=== PATIENT | male | born 1975 | race Two or more races ===

== ENCOUNTER 2019-01-14 08:21 | Emergency (ER) | payer OTHER ==
[~2019-01-14] VITALS: Ht 175.3 cm; Wt 104.5 kg
[2019-01-14] MEDS ORDERED: FURO80 PO (08:32)
[2019-01-14] MEDS ORDERED: IBUPROFEN 600 MG TABLET PO ONE (09:15)
[2019-01-14 13:00] VITALS: BP 118/79
== END 2019-01-14 13:05 | disposition home or self-care (01) ==
LOC: EMS 08:23
DX: F10.129 Alcohol abuse with intoxication, unspecified (principal); M54.9 Dorsalgia, unspecified; G89.29 Other chronic pain; F17.210 Nicotine dependence, cigarettes, uncomplicated; Z79.899 Other long term (current) drug therapy

== ENCOUNTER 2019-01-17 14:51 | Emergency (ER) | payer OTHER ==
[~2019-01-17] VITALS: Ht 175.3 cm; Wt 105.0 kg
[~2019-01-17 14:51] MED LIST: FURO80 PO
[2019-01-17] MEDS ORDERED: GABA-531 PO (15:22)
[2019-01-17] MEDS ORDERED: FURO20 PO (15:22)
[2019-01-17] MEDS ORDERED: CEPH500 PO (15:22)
[2019-01-17] MEDS ORDERED: OMEP20 PO (15:22)
[2019-01-17 15:35] LABS: GLUCOSE,POINT OF CARE 118 MG/DL (70-110)
[2019-01-17 16:06] LABS: BASOPHILS % (AUTO) 0.5 % (0.0-2.0); EOSINOPHILS % (AUTO) 5.7 % (1.0-6.0); HEMATOCRIT 31.4 % (41-53); HEMOGLOBIN 10.1 g/dL (13.5-17.5); LYMPHOCYTES # (AUTO) 1.8 K/uL (1.0-4.8); MEAN CORPUSCULAR HEMOGLOBIN 25.8 pg (26.0-34.0); MEAN CORPUSCULAR HGB CONC 32.3 G/dL (31.0-37.0); MEAN CORPUSCULAR VOLUME 80 fL (80-100); MONOCYTES # (AUTO) 0.3 K/uL (0.1-1.0); MONOCYTES % (AUTO) 6.2 % (2.0-9.0); NEUTROPHILS # (AUTO) 3.1 K/uL (1.8-7.7); NEUTROPHILS % (AUTO) 55.6 % (40.0-70.0); RED BLOOD CELL COUNT(AUTO) 3.92 MIL/uL (4.50-5.90); RED CELL DISTRIBUTION WIDTH 21.7 % (11.5-14.5)
[2019-01-17 16:21] LABS: ALANINE AMINOTRANSFERASE 79 U/L (12-78); ALBUMIN 3.2 g/dL (3.4-5.0); ALKALINE PHOSPHATASE 123 U/L (46-116); ANION GAP 10 mmol/L (8-16); ASPARTATE AMINOTRANSFERASE 147 U/L (15-37); BILIRUBIN,TOTAL 1.1 mg/dL (0.1-1.0); CARBON DIOXIDE 25 mmol/L (22-29); CHLORIDE 108 mmol/L (98-107); GLOMERULAR FILTR. RATE CALC > 60 mL/min (>60); GLUCOSE,RANDOM 112 mg/dL (70-110); POTASSIUM 3.9 mmol/L (3.5-5.1); SODIUM SERUM 143 mmol/L (136-145); TOTAL PROTEIN, SERUM 6.4 g/dL (6.4-8.2); UREA NITROGEN, BLOOD 5 mg/dL (7-18)
[2019-01-17 16:30] LABS: PLATELET COUNT (AUTO) 46 K/uL (150-450)
[2019-01-17 16:33] LABS: CALCIUM, TOTAL 8.7 mg/dL (8.8-10.5)
[2019-01-17 16:34] LABS: ACETAMINOPHEN < 2 mcg/mL (10-30)
[2019-01-17 17:07] LABS: SALICYLATE 0.9 mg/dL (2.8-20.0)
[2019-01-17 17:40] LABS: AMPHET/METH SCREEN,URINE NEGATIVE (NEGATIVE); BARBITURATE SCREEN, URINE NEGATIVE (NEGATIVE); BENZODIAZEPINES SCREEN,URINE NEGATIVE (NEGATIVE); CANNABINOID SCREEN,URINE NEGATIVE (NEGATIVE); COCAINE SCREEN,URINE NEGATIVE (NEGATIVE); METHADONE SCREEN, URINE NEGATIVE (NEGATIVE); OPIATE SCREEN,URINE NEGATIVE (NEGATIVE)
[2019-01-17 17:41] LABS: PHENCYCLIDINE SCREEN,URINE NEGATIVE (NEGATIVE)
[2019-01-17 17:47] LABS: APPEARANCE,URINE CLEAR (CLEAR); BILIRUBIN,URINE NEGATIVE (NEGATIVE); GLUCOSE, URINE (UA) NEGATIVE (NEGATIVE); KETONES,URINE NEGATIVE (NEGATIVE); LEUKOCYTE ESTERASE ,URINE NEGATIVE (NEGATIVE); NITRATE,URINE NEGATIVE (NEGATIVE); OCCULT BLOOD,URINE NEGATIVE (NEGATIVE); PROTEIN,URINE NEGATIVE (NEGATIVE)
[2019-01-17 18:13] LABS: BACTERIA,URINE None Seen /HPF (None Seen); RBC,URINE None Seen /HPF (0-2); WBC,URINE None Seen /HPF (0-5)
[2019-01-17 18:14] LABS: SQUAMOUS EPITHELIAL CELL,UR Rare /LPF (None Seen)
[2019-01-17 22:57] VITALS: BP 124/76
== END 2019-01-17 23:14 | disposition home or self-care (01) ==
LOC: EMS 14:54
DX: F10.229 Alcohol dependence with intoxication, unspecified (principal); E11.9 Type 2 diabetes mellitus without complications; I10 Essential (primary) hypertension; G89.29 Other chronic pain; K74.60 Unspecified cirrhosis of liver; F17.210 Nicotine dependence, cigarettes, uncomplicated; F32.9 Major depressive disorder, single episode, unspecified; Z79.899 Other long term (current) drug therapy; Y90.8 Blood alcohol level of 240 mg/100 ml or more
CPT/HCPCS: 36415; 80053; 80307; 81001; 82962; 85025; 99285; G0480; G0481

== ENCOUNTER 2019-02-04 23:41 | Emergency (ER) | payer OTHER ==
[~2019-02-04] VITALS: Ht 175.3 cm; Wt 97.5 kg
[~2019-02-04 23:41] MED LIST changes: +CEPH500 PO; +FURO20 PO; -FURO80 PO; +GABA-531 PO; +OMEP20 PO
[2019-02-05] MEDS ORDERED: IOVERSOL 350 MG/ML 150 ML VIAL ONE (01:37)
[2019-02-05] MEDS ORDERED: SODIUM CHLORIDE 0.9% 100 ML ONE (01:37)
[2019-02-05 01:40] LABS: BASOPHILS % (AUTO) 0.8 % (0.0-2.0); EOSINOPHILS % (AUTO) 9.5 % (1.0-6.0); HEMATOCRIT 39.9 % (41-53); HEMOGLOBIN 12.9 g/dL (13.5-17.5); LYMPHOCYTES # (AUTO) 2.6 K/uL (1.0-4.8); MEAN CORPUSCULAR HGB CONC 32.2 G/dL (31.0-37.0); MEAN CORPUSCULAR VOLUME 84 fL (80-100); MONOCYTES # (AUTO) 0.6 K/uL (0.1-1.0); MONOCYTES % (AUTO) 8.3 % (2.0-9.0); NEUTROPHILS # (AUTO) 3.5 K/uL (1.8-7.7); NEUTROPHILS % (AUTO) 46.4 % (40.0-70.0); RED BLOOD CELL COUNT(AUTO) 4.76 MIL/uL (4.50-5.90)
[2019-02-05 01:56] LABS: ALANINE AMINOTRANSFERASE 73 U/L (12-78); ALBUMIN 3.6 g/dL (3.4-5.0); ALKALINE PHOSPHATASE 131 U/L (46-116); ANION GAP 8 mmol/L (8-16); ASPARTATE AMINOTRANSFERASE 79 U/L (15-37); BILIRUBIN,TOTAL 1.1 mg/dL (0.1-1.0); CALCIUM, TOTAL 8.9 mg/dL (8.8-10.5); CARBON DIOXIDE 28 mmol/L (22-29); CHLORIDE 103 mmol/L (98-107); CREATININE 0.83 mg/dL (0.60-1.30); GLOMERULAR FILTR. RATE CALC > 60 mL/min (>60); GLUCOSE,RANDOM 109 mg/dL (70-110); POTASSIUM 3.8 mmol/L (3.5-5.1); SODIUM SERUM 139 mmol/L (136-145); TOTAL PROTEIN, SERUM 7.9 g/dL (6.4-8.2)
[2019-02-05 02:02] LABS: UREA NITROGEN, BLOOD 7 mg/dL (7-18)
[2019-02-05 02:07] LABS: PLATELET COUNT (AUTO) 91 K/uL (150-450)
[2019-02-05 05:14] LABS: CREATINE KINASE, TOTAL ONLY 520 U/L (39-308)
[2019-02-05 11:26] VITALS: BP 125/70
== END 2019-02-05 12:29 | disposition home or self-care (01) ==
LOC: EMS 23:43
DX: S00.03XA Contusion of scalp, initial encounter (principal); K70.30 Alcoholic cirrhosis of liver without ascites; R41.82 Altered mental status, unspecified; F10.129 Alcohol abuse with intoxication, unspecified; F32.9 Major depressive disorder, single episode, unspecified; I10 Essential (primary) hypertension; E11.9 Type 2 diabetes mellitus without complications; G89.29 Other chronic pain; F17.210 Nicotine dependence, cigarettes, uncomplicated; Z79.899 Other long term (current) drug therapy; W19.XXXA Unspecified fall, initial encounter; Y93.89 Activity, other specified; Y92.89 Other specified places as the place of occurrence of the external cause; Y99.8 Other external cause status; Y90.8 Blood alcohol level of 240 mg/100 ml or more
CPT/HCPCS: 36415; 70450; 71260; 72125; 74177; 80053; 82550; 84484; 85025; 93005; 99284; G0480; J7050; Q9967; 72193; 74160

== ENCOUNTER 2019-12-16 23:25 | Emergency (ER) | payer OTHER ==
[~2019-12-16] VITALS: Ht 175.3 cm; Wt 115.7 kg
[~2019-12-16 23:25] MED LIST changes: +GABA-1181 PO; -GABA-531 PO
[2019-12-16 23:57] LABS: BASOPHILS % (AUTO) 1.3 % (0.0-2.0); EOSINOPHILS % (AUTO) 2.2 % (1.0-6.0); HEMATOCRIT 34.2 % (41-53); HEMOGLOBIN 11.2 g/dL (13.5-17.5); LYMPHOCYTES # (AUTO) 2.1 K/uL (1.0-4.8); LYMPHOCYTES % (AUTO) 44.5 % (22.0-44.0); MEAN CORPUSCULAR HEMOGLOBIN 27.1 pg (26.0-34.0); MEAN CORPUSCULAR HGB CONC 32.8 G/dL (31.0-37.0); MEAN CORPUSCULAR VOLUME 83 fL (80-100); MONOCYTES # (AUTO) 0.5 K/uL (0.1-1.0); MONOCYTES % (AUTO) 9.6 % (2.0-9.0); NEUTROPHILS % (AUTO) 42.4 % (40.0-70.0); RED BLOOD CELL COUNT(AUTO) 4.14 MIL/uL (4.50-5.90); RED CELL DISTRIBUTION WIDTH 21.2 % (11.5-14.5)
[2019-12-17] MEDS ORDERED: DOXY-354 PO (00:02)
[2019-12-17] MEDS ORDERED: TRAZ-257 PO (00:02)
[2019-12-17] MEDS ORDERED: SPIR25 PO (00:02)
[2019-12-17] MEDS ORDERED: LEVE500T53 PO (00:02)
[2019-12-17] MEDS ORDERED: BUSP10TA23 PO (00:02)
[2019-12-17] MEDS ORDERED: FOLI-130 PO (00:02)
[2019-12-17] MEDS ORDERED: IBUP-2070 PO (00:02)
[2019-12-17] MEDS ORDERED: MIRT-89 PO (00:02)
[2019-12-17] MEDS ORDERED: THIA100T80 PO (00:02)
[2019-12-17 00:42] LABS: AMPHET/METH SCREEN,URINE NEGATIVE (NEGATIVE); BARBITURATE SCREEN, URINE NEGATIVE (NEGATIVE); BENZODIAZEPINES SCREEN,URINE NEGATIVE (NEGATIVE); CANNABINOID SCREEN,URINE NEGATIVE (NEGATIVE); COCAINE SCREEN,URINE NEGATIVE (NEGATIVE); METHADONE SCREEN, URINE NEGATIVE (NEGATIVE); OPIATE SCREEN,URINE NEGATIVE (NEGATIVE)
[2019-12-17 00:43] LABS: PHENCYCLIDINE SCREEN,URINE NEGATIVE (NEGATIVE)
[2019-12-17 00:45] LABS: PLATELET COUNT (AUTO) 55 K/uL (150-450)
[2019-12-17 00:54] LABS: ANION GAP 10 mmol/L (8-16); CALCIUM, TOTAL 8.6 mg/dL (8.8-10.5); CARBON DIOXIDE 26 mmol/L (22-29); CHLORIDE 112 mmol/L (98-107); CREATININE 0.69 mg/dL (0.60-1.30); GLOMERULAR FILTR. RATE CALC > 60 mL/min (>60); GLUCOSE,RANDOM 159 mg/dL (70-110); POTASSIUM 3.4 mmol/L (3.5-5.1); SODIUM SERUM 148 mmol/L (136-145); UREA NITROGEN, BLOOD 9 mg/dL (7-18)
[2019-12-17 01:00] LABS: ALANINE AMINOTRANSFERASE 39 U/L (12-78); ALBUMIN 3.1 g/dL (3.4-5.0); ALKALINE PHOSPHATASE 127 U/L (46-116); ASPARTATE AMINOTRANSFERASE 61 U/L (15-37); BILIRUBIN,TOTAL 0.7 mg/dL (0.1-1.0); TOTAL PROTEIN, SERUM 7.5 g/dL (6.4-8.2)
[2019-12-17 06:30] VITALS: BP 118/83
== END 2019-12-17 07:16 | disposition home or self-care (01) ==
LOC: EMS 23:25
DX: F10.129 Alcohol abuse with intoxication, unspecified (principal); F32.9 Major depressive disorder, single episode, unspecified; E11.9 Type 2 diabetes mellitus without complications; I10 Essential (primary) hypertension; G89.29 Other chronic pain; F17.210 Nicotine dependence, cigarettes, uncomplicated; Z79.899 Other long term (current) drug therapy; Y90.8 Blood alcohol level of 240 mg/100 ml or more
CPT/HCPCS: 36415; 80053; 80307; 85025; 99285; G0480

== ENCOUNTER 2019-12-20 10:03 | Inpatient (IN) | payer MEDICAID ==
[~2019-12-20] VITALS: Ht 175.3 cm; Wt 105.6 kg
[~2019-12-20 10:03] MED LIST changes: +BUSP10TA23 PO; -CEPH500 PO; +DOXY-354 PO; +FOLI-130 PO; +IBUP-2070 PO; +LEVE500T53 PO; +MIRT-89 PO; -OMEP20 PO; +SPIR25 PO; +THIA100T80 PO; +TRAZ-257 PO
[2019-12-20] MEDS ORDERED: LORazepam 2 MG TABLET PO PRN (19:30)
[2019-12-20] MEDS ORDERED: DULO60CA64 PO (19:35)
[2019-12-20] MEDS ORDERED: PANT40TA25 PO (19:35)
[2019-12-20 21:27] VITALS: BP 110/54
[2019-12-20] MEDS: TraMADol HCL 50 MG TABLET PO PRN (22:52)
[2019-12-21] VITALS (7 sets, daily range): BP systolic 105–138; BP diastolic 56–75
[2019-12-21] MEDS: ZOLPIDEM TARTRATE 10 MG TABLET PO PRN (01:42)
[2019-12-21] MEDS ORDERED: ONDANSETRON HCL 4 MG TABLET PO PRN (08:15)
[2019-12-21] MEDS ORDERED: GuaiFENesin/D-METHORPHAN [SUGAR-FREE] 200-20MG/10 ML SYRUP UDCUP PO PRN (08:15)
[2019-12-21] MEDS ORDERED: LOPERAMIDE HCL 2 MG CAPSULE PO PRN (08:15)
[2019-12-21] MEDS ORDERED: MAGNESIUM HYDROXIDE SUSPENSION 30 ML UDCUP PO PRN (08:15)
[2019-12-21] MEDS ORDERED: PETROLATUM,WHITE 28 GM JELLY TP PRN (08:15)
[2019-12-21] MEDS ORDERED: CloNIDine HCL 0.1 MG TABLET PO PRN (08:15)
[2019-12-21] MEDS ORDERED: DOCUSATE SODIUM 100 MG CAPSULE PO PRN (08:15)
[2019-12-21] MEDS ORDERED: IBUPROFEN 400 MG TABLET PO PRN (08:15)
[2019-12-21] MEDS ORDERED: ACETAMINOPHEN 325 MG TABLET PO PRN (08:15)
[2019-12-21] MEDS ORDERED: ALBUTEROL SULFATE HFA 90 MCG/PUFF 8 GM INHALER IH PRN (08:15)
[2019-12-21] MEDS ORDERED: MAG HYDROX/AL HYDROX/SIMETH ES 30 ML SUSPENSION UDCUP PO PRN (08:15)
[2019-12-21] MEDS ORDERED: NICOTINE 14 MG/24 HOUR PATCH TD PRN (08:15)
[2019-12-21] MEDS: FUROSEMIDE 20 MG TABLET PO SCH (09:23)
[2019-12-21] MEDS: SPIRONOLACTONE 25 MG TABLET PO SCH ×2 (09:23→16:39)
[2019-12-21] MEDS: LevETIRAcetam 500 MG TABLET PO SCH ×2 (09:23→16:39)
[2019-12-21] MEDS ORDERED: LORazepam 2 MG TABLET PO PRN (10:30)
[2019-12-21] MEDS ORDERED: CYANOCOBALAMIN 1,000 MCG/ML VIAL IM ONE (10:30)
[2019-12-21] MEDS: DULoxetine HCL 60 MG CAPSULE PO SCH (11:06)
[2019-12-21] MEDS: FOLIC ACID 1 MG TABLET PO SCH (11:06)
[2019-12-21] MEDS: MULTIVITAMINS WITH MINERALS, THERAPEUTIC TABLET PO SCH (11:07)
[2019-12-21] MEDS: THIAMINE 100 MG TABLET PO SCH ×2 (11:07→16:39)
[2019-12-21] MEDS: BusPIRone HCL 10 MG TABLET PO SCH ×2 (11:13→16:38)
[2019-12-21] MEDS: HALOPERIDOL 5 MG TABLET PO PRN (11:18)
[2019-12-21] MEDS: MIRTAZAPINE 15 MG TABLET PO SCH (20:22)
[2019-12-21] MEDS: TraZODone HCL 100 MG TABLET PO SCH (20:22)
[2019-12-22] VITALS (7 sets, daily range): BP systolic 124–147; BP diastolic 60–77
[2019-12-22] MEDS: SPIRONOLACTONE 25 MG TABLET PO SCH ×2 (08:34→17:44)
[2019-12-22] MEDS: LORazepam 2 MG TABLET PO SCH ×4 (08:35→21:36)
[2019-12-22] MEDS: FOLIC ACID 1 MG TABLET PO SCH (08:35)
[2019-12-22] MEDS: LevETIRAcetam 500 MG TABLET PO SCH ×2 (08:35→17:44)
[2019-12-22] MEDS: DULoxetine HCL 60 MG CAPSULE PO SCH (08:35)
[2019-12-22] MEDS: BusPIRone HCL 10 MG TABLET PO SCH ×2 (08:35→17:44)
[2019-12-22] MEDS: PANTOPRAZOLE SODIUM 40 MG DR TABLET PO SCH (08:35)
[2019-12-22] MEDS: MULTIVITAMINS WITH MINERALS, THERAPEUTIC TABLET PO SCH (08:35)
[2019-12-22] MEDS: THIAMINE 100 MG TABLET PO SCH ×2 (08:35→17:44)
[2019-12-22] MEDS: FUROSEMIDE 20 MG TABLET PO SCH (08:36)
[2019-12-22] MEDS ORDERED: THIAMINE 100 MG TABLET PO SCH (09:00)
[2019-12-22] MEDS ORDERED: FOLIC ACID 1 MG TABLET PO SCH (09:00)
[2019-12-22] MEDS: TraMADol HCL 50 MG TABLET PO PRN (17:50)
[2019-12-22] MEDS: TraZODone HCL 100 MG TABLET PO SCH (21:36)
[2019-12-22] MEDS: MIRTAZAPINE 15 MG TABLET PO SCH (21:37)
[2019-12-22] MEDS: ZOLPIDEM TARTRATE 10 MG TABLET PO PRN (23:53)
[2019-12-22] MEDS: LORazepam 2 MG TABLET PO PRN (23:54)
[2019-12-23 01:09] VITALS: BP 141/87
[2019-12-23] MEDS: SPIRONOLACTONE 25 MG TABLET PO SCH ×2 (09:23→17:29)
[2019-12-23] MEDS: BusPIRone HCL 10 MG TABLET PO SCH ×2 (09:24→17:29)
[2019-12-23] MEDS: THIAMINE 100 MG TABLET PO SCH ×2 (09:24→17:29)
[2019-12-23] MEDS: FOLIC ACID 1 MG TABLET PO SCH (09:24)
[2019-12-23] MEDS: HALOPERIDOL 5 MG TABLET PO PRN ×2 (09:24→14:04)
[2019-12-23] MEDS: LevETIRAcetam 500 MG TABLET PO SCH ×2 (09:24→17:29)
[2019-12-23] MEDS: MULTIVITAMINS WITH MINERALS, THERAPEUTIC TABLET PO SCH (09:24)
[2019-12-23] MEDS: FUROSEMIDE 20 MG TABLET PO SCH (09:24)
[2019-12-23] MEDS: DULoxetine HCL 60 MG CAPSULE PO SCH (09:24)
[2019-12-23] MEDS: PANTOPRAZOLE SODIUM 40 MG DR TABLET PO SCH (09:24)
[2019-12-23] MEDS: LORazepam 2 MG TABLET PO SCH ×4 (09:25→20:56)
[2019-12-23] MEDS: LORazepam 2 MG TABLET PO PRN (11:11)
[2019-12-23 11:18] VITALS: BP 124/78
[2019-12-23 11:35] VITALS: BP 124/78
[2019-12-23 16:00] VITALS: BP 129/76
[2019-12-23] MEDS: TraZODone HCL 100 MG TABLET PO SCH (20:56)
[2019-12-23] MEDS: MIRTAZAPINE 15 MG TABLET PO SCH (20:56)
[2019-12-24] VITALS (8 sets, daily range): BP systolic 115–124; BP diastolic 64–78
[2019-12-24] MEDS ORDERED: LORazepam 1 MG TABLET PO PRN (07:00)
[2019-12-24] MEDS: LevETIRAcetam 500 MG TABLET PO SCH ×2 (10:11→16:47)
[2019-12-24] MEDS: PANTOPRAZOLE SODIUM 40 MG DR TABLET PO SCH (10:11)
[2019-12-24] MEDS: MULTIVITAMINS WITH MINERALS, THERAPEUTIC TABLET PO SCH (10:11)
[2019-12-24] MEDS: FUROSEMIDE 20 MG TABLET PO SCH (10:11)
[2019-12-24] MEDS: FOLIC ACID 1 MG TABLET PO SCH (10:12)
[2019-12-24] MEDS: LORazepam 1 MG TABLET PO SCH ×4 (10:12→20:50)
[2019-12-24] MEDS: DULoxetine HCL 60 MG CAPSULE PO SCH (10:12)
[2019-12-24] MEDS: SPIRONOLACTONE 25 MG TABLET PO SCH ×2 (10:12→16:47)
[2019-12-24] MEDS: BusPIRone HCL 10 MG TABLET PO SCH ×2 (10:12→16:47)
[2019-12-24] MEDS: THIAMINE 100 MG TABLET PO SCH ×2 (10:12→16:47)
[2019-12-24] MEDS: MIRTAZAPINE 15 MG TABLET PO SCH (20:48)
[2019-12-24] MEDS: TraZODone HCL 100 MG TABLET PO SCH (20:49)
[2019-12-24] MEDS: TraMADol HCL 50 MG TABLET PO PRN (20:51)
[2019-12-25 06:26] VITALS: BP 102/68
[2019-12-25] MEDS ORDERED: LORazepam 1 MG TABLET PO PRN (07:00)
[2019-12-25] MEDS: FOLIC ACID 1 MG TABLET PO SCH (10:24)
[2019-12-25] MEDS: DULoxetine HCL 60 MG CAPSULE PO SCH (10:24)
[2019-12-25] MEDS: BusPIRone HCL 10 MG TABLET PO SCH ×2 (10:24→16:14)
[2019-12-25] MEDS: SPIRONOLACTONE 25 MG TABLET PO SCH ×2 (10:24→16:14)
[2019-12-25] MEDS: MULTIVITAMINS WITH MINERALS, THERAPEUTIC TABLET PO SCH (10:24)
[2019-12-25] MEDS: THIAMINE 100 MG TABLET PO SCH ×2 (10:24→16:14)
[2019-12-25] MEDS: LevETIRAcetam 500 MG TABLET PO SCH ×2 (10:24→16:15)
[2019-12-25] MEDS: PANTOPRAZOLE SODIUM 40 MG DR TABLET PO SCH (10:27)
[2019-12-25] MEDS: FUROSEMIDE 20 MG TABLET PO SCH (10:27)
[2019-12-25 10:47] VITALS: BP 103/62
[2019-12-25 12:47] VITALS: BP 115/65
[2019-12-25 16:37] VITALS: BP 117/71
[2019-12-25] MEDS: MIRTAZAPINE 15 MG TABLET PO SCH (20:28)
[2019-12-25] MEDS: TraZODone HCL 100 MG TABLET PO SCH (20:28)
[2019-12-26 05:57] VITALS: BP 107/67
[2019-12-26 08:54] VITALS: BP 130/78
[2019-12-26 09:05] VITALS: BP 130/78
[2019-12-26] MEDS: FUROSEMIDE 20 MG TABLET PO SCH (10:18)
[2019-12-26] MEDS: THIAMINE 100 MG TABLET PO SCH ×2 (10:18→16:30)
[2019-12-26] MEDS: MULTIVITAMINS WITH MINERALS, THERAPEUTIC TABLET PO SCH (10:18)
[2019-12-26] MEDS: BusPIRone HCL 10 MG TABLET PO SCH ×2 (10:18→16:31)
[2019-12-26] MEDS: LevETIRAcetam 500 MG TABLET PO SCH ×2 (10:18→16:30)
[2019-12-26] MEDS: FOLIC ACID 1 MG TABLET PO SCH (10:18)
[2019-12-26] MEDS: SPIRONOLACTONE 25 MG TABLET PO SCH ×2 (10:18→16:31)
[2019-12-26] MEDS: DULoxetine HCL 60 MG CAPSULE PO SCH (10:18)
[2019-12-26] MEDS: PANTOPRAZOLE SODIUM 40 MG DR TABLET PO SCH (10:18)
[2019-12-26 16:00] VITALS: BP 104/64
[2019-12-26 16:05] VITALS: BP 104/64
[2019-12-26 20:40] VITALS: BP 119/71
[2019-12-26] MEDS: TraMADol HCL 50 MG TABLET PO PRN (20:40)
[2019-12-26] MEDS: TraZODone HCL 100 MG TABLET PO SCH (20:41)
[2019-12-26] MEDS: MIRTAZAPINE 15 MG TABLET PO SCH (20:41)
[2019-12-27] MEDS: ZOLPIDEM TARTRATE 10 MG TABLET PO PRN (02:20)
[2019-12-27 02:28] VITALS: BP 108/63
[2019-12-27 02:30] VITALS: BP 108/63
[2019-12-27 08:12] VITALS: BP 119/76
[2019-12-27] MEDS: FOLIC ACID 1 MG TABLET PO SCH (09:03)
[2019-12-27] MEDS: THIAMINE 100 MG TABLET PO SCH ×2 (09:04→16:25)
[2019-12-27] MEDS: MULTIVITAMINS WITH MINERALS, THERAPEUTIC TABLET PO SCH (09:04)
[2019-12-27] MEDS: LevETIRAcetam 500 MG TABLET PO SCH ×2 (09:04→16:25)
[2019-12-27] MEDS: DULoxetine HCL 60 MG CAPSULE PO SCH (09:04)
[2019-12-27] MEDS: PANTOPRAZOLE SODIUM 40 MG DR TABLET PO SCH (09:04)
[2019-12-27] MEDS: FUROSEMIDE 20 MG TABLET PO SCH (09:06)
[2019-12-27] MEDS: SPIRONOLACTONE 25 MG TABLET PO SCH ×2 (09:08→16:25)
[2019-12-27] MEDS: BusPIRone HCL 10 MG TABLET PO SCH ×2 (09:08→16:25)
[2019-12-27 11:13] VITALS: BP 119/76
[2019-12-27 16:28] VITALS: BP 128/68
[2019-12-27 17:41] VITALS: BP 128/68
[2019-12-27] MEDS: TraZODone HCL 100 MG TABLET PO SCH (20:00)
[2019-12-27] MEDS: MIRTAZAPINE 15 MG TABLET PO SCH (20:00)
[2019-12-28 08:18] VITALS: BP 124/78
[2019-12-28] MEDS: PANTOPRAZOLE SODIUM 40 MG DR TABLET PO SCH (08:42)
[2019-12-28] MEDS: LevETIRAcetam 500 MG TABLET PO SCH (08:42)
[2019-12-28] MEDS: FUROSEMIDE 20 MG TABLET PO SCH (08:42)
[2019-12-28] MEDS: SPIRONOLACTONE 25 MG TABLET PO SCH (08:42)
[2019-12-28] MEDS: BusPIRone HCL 10 MG TABLET PO SCH (08:42)
[2019-12-28] MEDS: THIAMINE 100 MG TABLET PO SCH (08:43)
[2019-12-28] MEDS: MULTIVITAMINS WITH MINERALS, THERAPEUTIC TABLET PO SCH (08:43)
[2019-12-28] MEDS: FOLIC ACID 1 MG TABLET PO SCH (08:43)
[2019-12-28] MEDS: DULoxetine HCL 60 MG CAPSULE PO SCH (08:44)
[2019-12-28] MEDS ORDERED: DULO60CA44 PO (09:20)
[2019-12-28] MEDS ORDERED: BUSP10TA23 PO (09:20)
[2019-12-28] MEDS ORDERED: TRAZ-257 PO (09:20)
[2019-12-28] MEDS ORDERED: MIRT-89 PO (09:20)
[2019-12-31] MEDS ORDERED: FOLIC ACID 1 MG TABLET PO SCH (09:00)
== END 2019-12-28 13:30 | disposition home or self-care (01) | DRG 885 ==
LOC: 3EI 19:32
DX: F33.2 Major depressive disorder, recurrent severe without psychotic features (principal); I11.0 Hypertensive heart disease with heart failure; R45.851 Suicidal ideations; L03.90 Cellulitis, unspecified; E87.0 Hyperosmolality and hypernatremia; I50.9 Heart failure, unspecified; K21.9 Gastro-esophageal reflux disease without esophagitis; K74.60 Unspecified cirrhosis of liver; M19.90 Unspecified osteoarthritis, unspecified site; G40.909 Epilepsy, unspecified, not intractable, without status epilepticus; D64.9 Anemia, unspecified; E87.6 Hypokalemia; F10.20 Alcohol dependence, uncomplicated; Z79.899 Other long term (current) drug therapy; Z91.5 Personal history of self-harm; Z91.81 History of falling
CPT/HCPCS: J3420